=== PATIENT | female | born 1995 | race Hispanic/Latino ===

== ENCOUNTER 2025-07-04 20:39 | Emergency (ER) | payer OTHER ==
[2025-07-04] MEDS ORDERED: Ibuprofen 200 MG TAB ONE (21:01)
[2025-07-04] MEDS ORDERED: Benzonatate 100 MG CAP ONE (21:02)
[2025-07-04] MEDS ORDERED: Benzocaine/Menthol 1 LOZ LOZ PO SCH (21:15)
== END 2025-07-04 21:40 | disposition home or self-care (01) ==
LOC: CSHERS 20:39
DX: J11.1 Influenza due to unidentified influenza virus with other respiratory manifestations (principal); Z55.6 Problems related to health literacy
CPT/HCPCS: 87081; 87428; 87430; 99283